=== PATIENT | female | born 1990 | race Caucasian/White ===

== ENCOUNTER → 2016-10-13 | Outpatient (CLI) | payer BC | LOC: MW.CHOBGYN 16:16 | PROVIDERS: ATTEND Advanced Practice Midwife | DX: Z34.90 Encounter for supervision of normal pregnancy, unspecified, unspecified trimester (principal) | CPT/HCPCS: 36415; 80305; 81003; 82105; 82677; 84702; 85025; 86336; 86592; 86762; 86803; 86850; 86900; 86901; 87086; 87340; 87389; 87491; 87591 ==

== ENCOUNTER → 2016-11-01 | Outpatient (CLI) | payer BC ==
--- NOTE | 2016-11-01 15:45 | US ---
Examination: Greater than 14 weeks transabdominal ultrasound with color Doppler and M-mode evaluatio n. HISTORY: Screening FINDINGS: LMP is 06/14/2016 EVALUATION: Anterior placenta with a breech lie and grade 1. Visually amniotic fluid is within normal limits. Three-vessel cord is seen. Ventricles are within normal limits. Nuchal fold thickness is not provided. Four chamber heart is noted. Heart rate is 140 beats per minute. BIOMETRY AND GESTATIONAL AGE: Biparietal diameter 4.6 cm. The abdominal circumference measures 14.8 cm. The femoral length is 3.3 cm with head circumference of 17.3 cm. Gestational age is 20 weeks and 1 days. The expected date of delivery is approximately 03/20/2017. Fetus weight is 334 grams. Other detail anatomy summarized into PACs sheet after the images. No anatomical anomalies. IMPRESSION: Single active IU with breech fetus. Anterior placenta with grade 1, no placenta previa. No anomalies are seen. Amniotic fluid appears within normal limits.
== END ==
LOC: MW.US 09:26
PROVIDERS: ATTEND Advanced Practice Midwife
DX: Z36 Encounter for antenatal screening of mother (principal); Z3A.20 20 weeks gestation of pregnancy
CPT/HCPCS: 76805; 76805-26

== ENCOUNTER 2017-03-19 06:18 | Inpatient (IN) | payer BC ==
[2017-03-19] MEDS ORDERED: Butorphanol 1 MG/ML SDV IVPUSH PRN (06:43)
[2017-03-19] MEDS ORDERED: Carboprost Tromethamine 250 MCG/1 ML Amp IM PRN (06:43)
[2017-03-19] MEDS ORDERED: Nalbuphine 10 MG/1 ML Vial IVPUSH PRN (06:43)
[2017-03-19] MEDS ORDERED: Ondansetron 4 MG/2 ML SDV IV PRN (06:43)
[2017-03-19] MEDS ORDERED: Sodium Chloride 0.9% 2.5 ML Syringe FLUSH PRN (06:43)
[2017-03-19] MEDS ORDERED: Lidocaine 1% 50 ML MDV INJECT PRN (06:43)
[2017-03-19] MEDS ORDERED: Sodium Chloride 0.9% 10 ML Syringe FLUSH PRN (06:43)
[2017-03-19] MEDS ORDERED: Misoprostol 200 MCG Tab PO PRN (06:43)
[2017-03-19] MEDS ORDERED: Methylergonovine 0.2 MG/1 ML Amp IM PRN (06:43)
[2017-03-19] MEDS ORDERED: Water For Irrigation,Sterile 1,000 ML Container IRR PRN (06:43)
[2017-03-19] MEDS ORDERED: Oxytocin/0.9 % Sodium Chloride 30 UNIT/500 ML BAG IV SCH (06:45)
[2017-03-19] MEDS ORDERED: Lactated Ringers 1,000 ML IV SCH (06:45)
--- NOTE | 2017-03-19 08:00 | PCM.LDHP ---
L&D History of Present Illness - General Date of Service: 03/19/17 Admit Problem/Dx: Patient Status Order with Admit Dx/Problem 03/19/17 06:43 Patient Status [ADT] Routine Admission Diagnosis/Problem Admission Diagnosis/Problem 03/19/17 08:00 A: 26yo EDC 03/21/2017 39 5/7wks B+, R-equivocal, GBS neg. Uneventful . Source of Information: Patient History Limitations: Reports: No Limitations - History of Present Illness Timing/Duration: Reports: minutes: (2-3) Location, : Reports: Abdomen Quality: Reports: Sharp Severity: Severe Improves with: Reports: None Worsens with: Reports: None Associated Symptoms: Reports: N - Related Data Allergies/Adverse Reactions: Allergies Allergy/AdvReac Type Severity Reaction Status Date / Time No Known Allergies Allergy Verified 03/18/17 22:37 H&P Review of Systems - Review of Systems: Review Of Systems: See Below General: Reports: No Symptoms HEENT: Reports: No Symptoms Pulmonary: Reports: No Symptoms Cardiovascular: Reports: No Symptoms Gastrointestinal: Reports: No Symptoms Genitourinary: Reports: No Symptoms Musculoskeletal: Reports: No Symptoms Skin: Reports: No Symptoms Psychiatric: Reports: No Symptoms Neurological: Reports: No Symptoms Hematologic/Lymphatic: Reports: No Symptoms Immunologic: Reports: No Symptoms L&D Exam - Exam Exam: See Below - Vital Signs Weight: 81.647 kg - OB Specific Fundal Height In cm: 40 Contraction Duration (sec): 50-70 sec Contraction Frequency (min): 2-4min Contraction Intensity: Strong Movement: Active Heart Tones: Present Heart Tones per Min: 150 Heart Rate (FHR) Variability: Moderate (6-25 bmp) Presentation: Vertex - Exam General: Alert, Oriented, Cooperative, Mild Distress HEENT: Hearing Intact Lungs: Normal Respiratory Effort GI/Abdominal Exam: No Organomegaly (gravid) Rectal Exam: Deferred Genitourinary: Normal bimanual exam, Cervical dilitation (7-8cm/c/-1), Cervical fluid (AROM clear) Back Exam: Full Range of Motion Extremities: Normal Range of Motion, Non-Tender, No Pedal Edema, Normal Capillary Refill Skin: Warm, Dry, Intact Neurological: Reflexes Equal Bilateral Psychiatric: Alert, Normal Affect, Normal Mood - Patient Data Lab Results Last 24 hrs: Laboratory Results - last 24 hr 03/19/17 03/19/17 Range/Units 06:54 06:54 WBC 16.12 H (4.0-11.0) K/uL RBC 4.86 (4.30-5.90) M/uL Hgb 13.1 (12.0-16.0) g/dL Hct 39.5 (36.0-46.0) % MCV 81.3 (80.0-98.0) fL MCH 27.0 (27.0-32.0) pg MCHC 33.2 (31.0-37.0) g/dL RDW Std Deviation 43.8 (28.0-62.0) fl RDW Coeff of Prateek 15 (11.0-15.0) % Plt Count 264 (150-400) K/uL MPV 12.10 H (7.40-12.00) fL Nucleated RBC % 0.0 /100WBC Nucleated RBCs # 0 K/uL Blood Type B POSITIVE Antibody Screen NEGATIVE Result Diagrams: 03/19/17 06:54 - Problem List (1) Supervision of normal IUP (intrauterine ) in primigravida SNOMED Code(s): 01565140, 357292311, 401919843, 687705793 ICD Code: Z34.00 - ENCNTR FOR SUPRVSN OF NORMAL FIRST , UNSP TRIMESTER Status: Acute Current Visit: Yes Qualifiers: Trimester: third trimester Qualified Code(s): Z34.03 - Encounter for supervision of normal first , third trimester Problem List Initiated/Reviewed/Updated: Yes Orders Last 24hrs: Active Orders 24 hr Category Date Time Status Patient Status [ADT] Routine ADT 03/19/17 06:43 Active Heart Tones [RC] CONTINUOUS Care 03/19/17 06:43 Active Non Stress Test [RC] PER UNIT ROUTINE Care 03/19/17 06:43 Active May Shower [RC] ASDIRECTED Care 03/19/17 06:43 Active Notify Provider [RC] PRN Care 03/19/17 06:43 Active Up ad Herlinda [RC] ASDIRECTED Care 03/19/17 06:43 Active Vaginal Exam [RC] PRN Care 03/19/17 06:43 Active Vital Signs [RC] PER UNIT ROUTINE Care 03/19/17 06:43 Active Butorphanol [Stadol] Med 03/19/17 06:43 Active 1 mg IVPUSH Q1H PRN Carboprost Tromethamine [Hemabate DS] Med 03/19/17 06:43 Active 250 mcg IM ASDIRECTED PRN Lactated Ringers [Ringers, Lactated] 1,000 ml Med 03/19/17 06:45 Active IV ASDIRECTED Lidocaine 1% [Xylocaine 1%] Med 03/19/17 06:43 Active 50 ml INJECT .ONCE PRN Methylergonovine [Methergine] Med 03/19/17 06:43 Active 0.2 mg IM ASDIRECTED PRN Misoprostol [Cytotec] Med 03/19/17 06:43 Active 200 mcg PO .ONCE PRN Nalbuphine [Nubain] Med 03/19/17 06:43 Active 10 mg IVPUSH Q1H PRN Ondansetron [Zofran] Med 03/19/17 06:43 Active 8 mg IV Q4H PRN Oxytocin/0.9 % Sodium Chloride [Oxytocin 30 Unit/500 ML Med 03/19/17 06:45 Active -NS] 30 unit in 500 ml IV TITRATE Sodium Chloride 0.9% [Saline Flush] Med 03/19/17 06:43 Active 10 ml FLUSH ASDIRECTED PRN Sodium Chloride 0.9% [Saline Flush] Med 03/19/17 06:43 Active 2.5 ml FLUSH ASDIRECTED PRN Water For Irrigation,Sterile [Sterile Water for Med 03/19/17 06:43 Active Irrigation] 1,000 ml IRR ASDIRECTED PRN Scalp Electrode [WOMSER] Per Unit Routine Oth 03/19/17 06:43 Ordered Peripheral IV Insertion Adult [OM.PC] Routine Oth 03/19/17 06:43 Ordered Resuscitation Status Routine Resus Stat 03/19/17 06:43 Ordered Medication Orders Butorphanol Tartrate (Stadol) 1 mg IVPUSH Q1H PRN PRN Reason: Pain Carboprost Tromethamine (Hemabate Ds) 250 mcg IM ASDIRECTED PRN PRN Reason: Post Hemorrhage Lactated Ringer's (Ringers, Lactated) 1,000 mls @ 150 mls/hr IV ASDIRECTED LATA Last Admin: 03/19/17 06:55 Dose: 150 mls/hr Oxytocin/Sodium Chloride (Oxytocin 30 Unit/500 Ml-Ns) 30 unit in 500 mls @ 999 mls/hr IV TITRATE LATA Lidocaine HCl (Xylocaine 1%) 50 ml INJECT .ONCE PRN PRN Reason: Laceration repair Methylergonovine Maleate (Methergine) 0.2 mg IM ASDIRECTED PRN PRN Reason: Post Hemorrhage Misoprostol (Cytotec) 200 mcg PO .ONCE PRN PRN Reason: Post Hemorrhage Nalbuphine HCl (Nubain) 10 mg IVPUSH Q1H PRN PRN Reason: Pain (severe 7-10) Ondansetron HCl (Zofran) 8 mg IV Q4H PRN PRN Reason: Nausea/Vomiting Last Admin: 03/19/17 07:11 Dose: 8 mg Sodium Chloride (Saline Flush) 10 ml FLUSH ASDIRECTED PRN PRN Reason: Keep Vein Open Sodium Chloride (Saline Flush) 2.5 ml FLUSH ASDIRECTED PRN PRN Reason: Keep Vein Open Sterile Water (Sterile Water For Irrigation) 1,000 ml IRR ASDIRECTED PRN PRN Reason: delivery Assessment/Plan Comment:: Labor A: 26yo EDC 03/21/2017 39 5/7wks B+, R-equivocal, GBS neg. Uneventful . Desires to go without pain medication P: Admit to L&D, anticipate JOSE, Dr Smalls updated
[2017-03-19] MEDS ORDERED: Docusate Sodium 100 MG Cap PO PRN (09:42)
[2017-03-19] MEDS ORDERED: Lanolin 100% Cream 7 GM Tube TOP PRN (09:42)
[2017-03-19] MEDS ORDERED: Ibuprofen 400 MG Tab PO PRN (09:42)
[2017-03-19] MEDS ORDERED: Benzocaine/Menthol 20%-0.5% Spray 78 GM Cannister TOP PRN (09:42)
[2017-03-19] MEDS ORDERED: oxyCODONE 5 MG Tab PO PRN (09:42)
[2017-03-19] MEDS ORDERED: Acetaminophen 500 MG Tab PO PRN ×2 (09:42)
[2017-03-19] MEDS ORDERED: Witch Hazel Medicated Pads 40/Jar TOP PRN (09:42)
[2017-03-19] MEDS ORDERED: Bisacodyl 10 MG Supp RECTAL PRN (09:42)
--- NOTE | 2017-03-19 09:50 | PCM.DEL ---
L & D Note - General Info Date of Service: 03/19/17 Mother's Due Date: 03/21/17 - Delivery Note Labor: Spontaneous Delivery Outcome: Livebirth Infant Delivery Method: Spontaneous Vaginal Delivery-Single Presentation: Vertex Nuchal Cord: None Anesthesia Type: None Amniotic Fluid Description: Clear Episiotomy Type: None Laceration: None Placenta: Intact, Spontaneous Cord: 3 Vessels Estimated Blood Loss: 150 Resuscitation Needed: No Second Stage Interventions: Reports: Pushing Effectively Delivery Comments (Free Text/Narrative):: of viable female over intact perineum without pain medication. Head delivered with great pushing and then shoulders and body followed easily. Infant to mothers abd with RN at . Delayed cord clamping. Pitocin to IVF. Cord clamped and cut by FOB. Cord blood collected. Placenta delivered grossly intact, 3VC. Inspection noted small side wall vaginal lac, no repair needed. APGARS 8/9, EBL 150cc. Mother and left in stable condition for recovery. - General Info Date of Service: 03/19/17 Admission Dx/Problem (Free Text): Patient Status Order with Admit Dx/Problem 03/19/17 06:43 Patient Status [ADT] Routine Admission Diagnosis/Problem Admission Diagnosis/Problem 03/19/17 08:00 A: 26yo EDC 03/21/2017 39 5/7wks B+, R-equivocal, GBS neg. Uneventful . Functional Status: Reports: Pain Controlled - Review of Systems General: Reports: No Symptoms HEENT: Reports: No Symptoms Pulmonary: Reports: No Symptoms Cardiovascular: Reports: No Symptoms Gastrointestinal: Reports: No Symptoms Genitourinary: Reports: No Symptoms Musculoskeletal: Reports: No Symptoms Skin: Reports: No Symptoms Neurological: Reports: No Symptoms Psychiatric: Reports: No Symptoms - Patient Data Weight - Most Recent: 81.647 kg Lab Results Last 24 Hours: Laboratory Results - last 24 hr 03/19/17 03/19/17 Range/Units 06:54 06:54 WBC 16.12 H (4.0-11.0) K/uL RBC 4.86 (4.30-5.90) M/uL Hgb 13.1 (12.0-16.0) g/dL Hct 39.5 (36.0-46.0) % MCV 81.3 (80.0-98.0) fL MCH 27.0 (27.0-32.0) pg MCHC 33.2 (31.0-37.0) g/dL RDW Std Deviation 43.8 (28.0-62.0) fl RDW Coeff of Prateek 15 (11.0-15.0) % Plt Count 264 (150-400) K/uL MPV 12.10 H (7.40-12.00) fL Nucleated RBC % 0.0 /100WBC Nucleated RBCs # 0 K/uL Blood Type B POSITIVE Antibody Screen NEGATIVE Med Orders - Current: Current Medications Acetaminophen (Tylenol Extra Strength) 500 mg PO Q4H PRN PRN Reason: Pain Acetaminophen (Tylenol Extra Strength) 1,000 mg PO Q4H PRN PRN Reason: Pain Benzocaine/Menthol (Dermoplast Pain Relief 20%-0.5% [place]) 78 gm TOP ASDIRECTED PRN PRN Reason: Perineal Comfort Measure Bisacodyl (Dulcolax) 10 mg RECTAL .ONCE PRN PRN Reason: Constipation Docusate Sodium (Colace) 100 mg PO BID PRN PRN Reason: Constipation Emollient Ointment (Lansinoh Hpa) 0 gm TOP ASDIRECTED PRN PRN Reason: Sore Nipples Ibuprofen (Motrin) 400 mg PO Q4H PRN PRN Reason: Pain Ibuprofen (Motrin) 800 mg PO Q6H PRN PRN Reason: Pain Oxycodone HCl (Oxycodone) 5 mg PO Q2H PRN PRN Reason: Pain Witch Pratima (Tucks) 1 pad TOP ASDIRECTED PRN PRN Reason: comfort care Discontinued Medications Butorphanol Tartrate (Stadol) 1 mg IVPUSH Q1H PRN PRN Reason: Pain Carboprost Tromethamine (Hemabate Ds) 250 mcg IM ASDIRECTED PRN PRN Reason: Post Hemorrhage Lactated Ringer's (Ringers, Lactated) 1,000 mls @ 150 mls/hr IV ASDIRECTED [facility] Last Admin: 03/19/17 06:55 Dose: 150 mls/hr Oxytocin/Sodium Chloride (Oxytocin 30 Unit/500 Ml-Ns) 30 unit in 500 mls @ 999 mls/hr IV TITRATE [facility] Last Admin: 03/19/17 09:31 Dose: 999 mls/hr Lidocaine HCl (Xylocaine 1%) 50 ml INJECT .ONCE PRN PRN Reason: Laceration repair Methylergonovine Maleate (Methergine) 0.2 mg IM ASDIRECTED PRN PRN Reason: Post Hemorrhage Misoprostol (Cytotec) 200 mcg PO .ONCE PRN PRN Reason: Post Hemorrhage Nalbuphine HCl (Nubain) 10 mg IVPUSH Q1H PRN PRN Reason: Pain (severe 7-10) Ondansetron HCl (Zofran) 8 mg IV Q4H PRN PRN Reason: Nausea/Vomiting Last Admin: 03/19/17 07:11 Dose: 8 mg Sodium Chloride (Saline Flush) 10 ml FLUSH ASDIRECTED PRN PRN Reason: Keep Vein Open Sodium Chloride (Saline Flush) 2.5 ml FLUSH ASDIRECTED PRN PRN Reason: Keep Vein Open Sterile Water (Sterile Water For Irrigation) 1,000 ml IRR ASDIRECTED PRN PRN Reason: delivery - Exam General: Alert, Oriented, Cooperative, No Acute Distress Lungs: Normal Respiratory Effort GI/Abdominal Exam: Soft, Non-Tender, No Distention, No Mass (Female) Exam: Normal External Exam, Normal Bimanual Exam, Vaginal Bleeding Back Exam: Full Range of Motion Extremities: Normal Range of Motion, Non-Tender, No Pedal Edema, Normal Capillary Refill Skin: Warm, Dry, Intact Wound/Incisions: Healing Well Neurological: No New Focal Deficit, Normal Speech, Normal Tone Psy/Mental Status: Alert, Normal Affect, Normal Mood - Problem List & Annotations (1) Supervision of normal IUP (intrauterine ) in primigravida SNOMED Code(s): 33270092, 992854645, 852065115, 617173959 Code(s): Z34.00 - ENCNTR FOR SUPRVSN OF NORMAL FIRST , UNSP TRIMESTER Status: Acute Current Visit: Yes Qualifiers: Trimester: third trimester Qualified Code(s): Z34.03 - Encounter for supervision of normal first , third trimester (2) (normal spontaneous vaginal delivery) SNOMED Code(s): 70211066 Code(s): O80 - ENCOUNTER FOR FULL-TERM UNCOMPLICATED DELIVERY Status: Acute Priority: High Current Visit: Yes - Problem List Review Problem List Initiated/Reviewed/Updated: Yes - My Orders Last 24 Hours: My Active Orders 03/19/17 06:43 Heart Tones [RC] CONTINUOUS Non Stress Test [RC] PER UNIT ROUTINE May Shower [RC] ASDIRECTED Notify Provider [RC] PRN Up ad Herlinda [RC] ASDIRECTED Vaginal Exam [RC] PRN Vital Signs [RC] PER UNIT ROUTINE 03/19/17 09:42 Patient Status [ADT] Routine May Shower [RC] ASDIRECTED Up ad Herlinda [RC] ASDIRECTED Vital Signs [RC] PER UNIT ROUTINE Acetaminophen [Tylenol Extra Strength] 1,000 mg PO Q4H PRN Acetaminophen [Tylenol Extra Strength] 500 mg PO Q4H PRN Benzocaine/Menthol [Dermoplast Pain Relief 20%-0.5% [place]] 78 gm TOP ASDIRECTED PRN Bisacodyl [Dulcolax] 10 mg RECTAL .ONCE PRN Docusate Sodium [Colace] 100 mg PO BID PRN Ibuprofen [Motrin] 400 mg PO Q4H PRN Ibuprofen [Motrin] 800 mg PO Q6H PRN Lanolin [Lansinoh HPA] See Dose Instructions TOP ASDIRECTED PRN Witch Pratima [Tucks] 1 pad TOP ASDIRECTED PRN oxyCODONE 5 mg PO Q2H PRN Assess Lochia [WOMSER] Per Unit Routine Assess Uterine Involution [WOMSER] Per Unit Routine Peripheral IV Discontinue [OM.PC] Routine Resuscitation Status Routine 03/19/17 Lunch Regular Diet [DIET] - Assessment Assessment:: Delivery A: over intact perineum healthy pink baby girl. APGARS 8/9, Wt pending bonding. Intact perineum, EBL 150cc, Mother and infant stable and bonding well. - Plan Plan:: Labor A: 26yo EDC 03/21/2017 39 5/7wks B+, R-equivocal, GBS neg. Uneventful . Desires to go without pain medication P: Admit to L&D, anticipate , Dr Smalls updated Delivery P: Routine pp plan of care.
[2017-03-19] MEDS: Ibuprofen 800 MG Tab PO PRN ×2 (10:07→19:00)
[2017-03-19] MEDS ORDERED: Lactated Ringers 1,000 ML IV ONE (15:40)
[2017-03-20] MEDS: Ibuprofen 800 MG Tab PO PRN ×2 (02:12→10:08)
[2017-03-20] MEDS ORDERED: FLU Vacc QS 2017-18 (6mos UP)/PF 60 MCG/0.5 ML Syringe IM ONE ×2 (09:00→10:00)
[2017-03-20 09:03] VITALS: BP 96/54
--- NOTE | 2017-03-20 09:24 | PCM.PNPP ---
- General Info Date of Service: 03/20/17 Functional Status: Reports: Pain Controlled - Review of Systems General: Reports: No Symptoms HEENT: Reports: No Symptoms Pulmonary: Reports: No Symptoms Cardiovascular: Reports: No Symptoms Gastrointestinal: Reports: No Symptoms Genitourinary: Reports: No Symptoms Musculoskeletal: Reports: No Symptoms Skin: Reports: No Symptoms Neurological: Reports: No Symptoms Psychiatric: Reports: No Symptoms - General Info Date of Service: 03/20/17 - Patient Data Vital Signs - Most Recent: Last Vital Signs Temp 36.9 C 03/20/17 08:00 Pulse 64 03/20/17 08:00 Resp 16 03/20/17 08:00 BP 96/54 L 03/20/17 08:00 Pulse Ox 97 03/20/17 08:00 Weight - Most Recent: 81.193 kg Med Orders - Current: Current Medications Acetaminophen (Tylenol Extra Strength) 500 mg PO Q4H PRN PRN Reason: Pain Last Admin: 03/19/17 15:30 Dose: 500 mg Acetaminophen (Tylenol Extra Strength) 1,000 mg PO Q4H PRN PRN Reason: Pain Benzocaine/Menthol (Dermoplast Pain Relief 20%-0.5% [place]) 78 gm TOP ASDIRECTED PRN PRN Reason: Perineal Comfort Measure Last Admin: 03/19/17 10:06 Dose: 1 canister Bisacodyl (Dulcolax) 10 mg RECTAL .ONCE PRN PRN Reason: Constipation Docusate Sodium (Colace) 100 mg PO BID PRN PRN Reason: Constipation Emollient Ointment (Lansinoh Hpa) 0 gm TOP ASDIRECTED PRN PRN Reason: Sore Nipples Last Admin: 03/19/17 10:07 Dose: 1 applicful Ibuprofen (Motrin) 400 mg PO Q4H PRN PRN Reason: Pain Ibuprofen (Motrin) 800 mg PO Q6H PRN PRN Reason: Pain Last Admin: 03/20/17 02:12 Dose: 800 mg Measles/Mumps/Rubella Vaccine Live (M-M-R Ii Vaccine) 0.5 ml SUBCUT .ONCE ONE Stop: 03/20/17 09:51 Oxycodone HCl (Oxycodone) 5 mg PO Q2H PRN PRN Reason: Pain Witch Pratima (Tucks) 1 pad TOP ASDIRECTED PRN PRN Reason: comfort care Last Admin: 03/19/17 10:06 Dose: 1 applicful Discontinued Medications Butorphanol Tartrate (Stadol) 1 mg IVPUSH Q1H PRN PRN Reason: Pain Carboprost Tromethamine (Hemabate Ds) 250 mcg IM ASDIRECTED PRN PRN Reason: Post Hemorrhage Lactated Ringer's (Ringers, Lactated) 1,000 mls @ 150 mls/hr IV ASDIRECTED L[facility] Last Admin: 03/19/17 06:55 Dose: 150 mls/hr Oxytocin/Sodium Chloride (Oxytocin 30 Unit/500 Ml-Ns) 30 unit in 500 mls @ 999 mls/hr IV TITRATE LATA Last Admin: 03/19/17 09:31 Dose: 999 mls/hr Lactated Ringer's (Ringers, Lactated) 1,000 mls @ 999 mls/hr IV .BOLUS ONE Stop: 03/19/17 16:40 Last Admin: 03/19/17 15:44 Dose: 999 mls/hr Lidocaine HCl (Xylocaine 1%) 50 ml INJECT .ONCE PRN PRN Reason: Laceration repair Methylergonovine Maleate (Methergine) 0.2 mg IM ASDIRECTED PRN PRN Reason: Post Hemorrhage Misoprostol (Cytotec) 200 mcg PO .ONCE PRN PRN Reason: Post Hemorrhage Nalbuphine HCl (Nubain) 10 mg IVPUSH Q1H PRN PRN Reason: Pain (severe 7-10) Ondansetron HCl (Zofran) 8 mg IV Q4H PRN PRN Reason: Nausea/Vomiting Last Admin: 03/19/17 07:11 Dose: 8 mg Sodium Chloride (Saline Flush) 10 ml FLUSH ASDIRECTED PRN PRN Reason: Keep Vein Open Sodium Chloride (Saline Flush) 2.5 ml FLUSH ASDIRECTED PRN PRN Reason: Keep Vein Open Sterile Water (Sterile Water For Irrigation) 1,000 ml IRR ASDIRECTED PRN PRN Reason: delivery - Interaction Infant Disposition, : in Room with Family Interaction: Holding Infant Feeding: Attempted ; Nursed Fair/Poor - Recovery Exam Fundal Tone: Firm Fundal Level: 2 Fingerbreadths Below Umbilicus Fundal Placement: Midline Lochia Amount: Scant Lochia Color: Rubra/Red Perineum Description: Intact, Minimal Bruising/Swelling Episiotomy/Laceration: Approximated Bladder Status: Voiding Urinary Elimination: Voided - Exam General: Alert, Oriented HEENT: Pupils Equal Neck: Supple Lungs: Clear to Auscultation, Normal Respiratory Effort Cardiovascular: Regular Rate, Regular Rhythm GI/Abdominal Exam: Normal Bowel Sounds, Soft, Non-Tender, No Organomegaly, No Distention, No Abnormal Bruit, No Mass, Pelvis Stable Extremities: Normal Inspection, Normal Range of Motion, Non-Tender, No Pedal Edema, Normal Capillary Refill Skin: Warm, Dry, Intact Wound/Incisions: Healing Well Neurological: No New Focal Deficit Psy/Mental Status: Alert, Normal Affect, Normal Mood - Problem List Review Problem List Initiated/Reviewed/Updated: Yes - My Orders Last 24 Hours: My Active Orders 03/20/17 10:00 FLU Vacc [id number](6MOS UP)/PF [Flulaval Quad [id number]] 60 mcg IM ONETIME ONE - Assessment Assessment:: Delivery A: over intact perineum healthy pink baby girl. APGARS 8/9, Wt pending bonding. Intact perineum, EBL 150cc, Mother and stable and bonding well. - Plan Plan:: Labor A: 26yo EDC 03/21/2017 39 5/7wks B+, R-equivocal, GBS neg. Uneventful . Desires to go without pain medication P: Admit to L&D, anticipate , Dr Smalls updated Delivery P: Routine pp plan of care.
[2017-03-20] MEDS ORDERED: Measles, Mumps & Rubella Vaccine 0.5 ML SDV SUBCUT ONE (09:50)
[2017-03-20] MEDS ORDERED: FLU Vacc QS 2017-18 (36mos UP)/PF 60 MCG/0.5 ML Syringe IM ONE (10:00)
== END 2017-03-20 11:45 | disposition home or self-care (01) | DRG 560 ==
LOC: MW.OBCHECK 06:18 → MW.OB 06:24 → MW.OBCHECK 06:43 → MW.OB 06:43 → OBSVTOIN 09:29
PROVIDERS: ADMIT Obstetrics & Gynecology; ATTEND Obstetrics & Gynecology
PROC: 10E0XZZ Delivery of Products of Conception, External Approach (ICD-10-PCS; principal; 2017-03-19)
DX: O80 Encounter for full-term uncomplicated delivery (principal); Z3A.39 39 weeks gestation of pregnancy; Z37.0 Single live birth
CPT/HCPCS: 36415; 59025; 59409; 85027; 86850; 86900; 86901; 90471; 90686; 90707; A9270-GY; J2405; J2590; J7120

== ENCOUNTER 2020-03-29 23:10 | Inpatient (IN) | payer BC, OTHER ==
[2020-03-30] MEDS ORDERED: Tranexamic Acid 1,000 MG in Sodium Chloride 0.9% 100 ML IV PRN ×2 (00:36→03:32)
[2020-03-30] MEDS ORDERED: Methylergonovine 0.2 MG/1 ML Amp IM PRN ×2 (00:36→03:32)
[2020-03-30] MEDS ORDERED: Water For Irrigation,Sterile 1,000 ML Container IRR PRN (00:36)
[2020-03-30] MEDS ORDERED: Sodium Chloride 0.9% 2.5 ML Syringe FLUSH PRN (00:36)
[2020-03-30] MEDS ORDERED: Ondansetron 4 MG/2 ML SDV IVPUSH PRN (00:36)
[2020-03-30] MEDS ORDERED: Sodium Chloride 0.9% 10 ML Syringe FLUSH PRN (00:36)
[2020-03-30] MEDS ORDERED: Sodium Chloride 0.9% 10 ML SDV IV PRN (00:36)
[2020-03-30] MEDS ORDERED: Carboprost Tromethamine 250 MCG/1 ML Amp IM PRN (00:36)
[2020-03-30] MEDS ORDERED: Misoprostol 200 MCG Tab PO PRN (00:36)
[2020-03-30] MEDS ORDERED: Lidocaine 1% 50 ML MDV INJECT PRN (00:36)
[2020-03-30] MEDS ORDERED: Nalbuphine 10 MG/1 ML Vial IVPUSH PRN (00:36)
[2020-03-30] MEDS ORDERED: Butorphanol 1 MG/ML SDV IVPUSH PRN (00:36)
[2020-03-30] MEDS ORDERED: Oxytocin/0.9 % Sodium Chloride 30 UNIT/500 ML BAG IV SCH (00:45)
[2020-03-30] MEDS ORDERED: Lactated Ringers 1,000 ML IV SCH (00:45)
[2020-03-30] MEDS ORDERED: Witch Hazel Medicated Pads 40/Jar TOP PRN (03:32)
[2020-03-30] MEDS ORDERED: Lanolin 100% Cream 7 GM Tube TOP PRN (03:32)
[2020-03-30] MEDS ORDERED: Acetaminophen 500 MG Tab PO PRN (03:32)
[2020-03-30] MEDS ORDERED: Ibuprofen 400 MG Tab PO PRN (03:32)
[2020-03-30] MEDS ORDERED: Bisacodyl 10 MG Supp RECTAL PRN (03:32)
[2020-03-30] MEDS ORDERED: Docusate Sodium 100 MG Cap PO PRN (03:32)
[2020-03-30] MEDS ORDERED: Benzocaine/Menthol 20%-0.5% Spray 78 GM Cannister TOP PRN (03:32)
--- NOTE | 2020-03-30 03:32 | PCM.DEL ---
L & D Note - General Info Date of Service: 03/30/20 Mother's Due Date: 03/27/20 - Delivery Note Labor: Spontaneous Delivery Outcome: Livebirth Infant Delivery Method: Spontaneous Vaginal Delivery-Single Presentation: Left Occiput Anterior (CANDICE) Nuchal Cord: None Prep: Other Anesthesia Type: Pudendal Laceration: None Placenta: Intact, Spontaneous Cord: 3 Vessels Estimated Blood Loss: 200 Resuscitation Needed: Yes [place]: Suctioned Score 1 min: 8 Score 5 min: 9 - General Info Date of Service: 03/30/20 - Patient Data Lab Results Last 24 Hours: Laboratory Results - last 24 hr 03/29/20 03/29/20 03/29/20 Range/Units 23:50 23:50 23:50 WBC 12.92 H (4.0-11.0) K/uL RBC 4.17 L (4.30-5.90) M/uL Hgb 11.8 L (12.0-16.0) g/dL Hct 35.8 L (36.0-46.0) % MCV 85.9 (80.0-98.0) fL MCH 28.3 (27.0-32.0) pg MCHC 33.0 (31.0-37.0) g/dL RDW Std Deviation 42.7 (28.0-62.0) fl RDW Coeff of Prateek 14 (11.0-15.0) % Plt Count 253 (150-400) K/uL MPV 11.40 (7.40-12.00) fL Nucleated RBC % 0.0 /100WBC Nucleated RBCs # 0 K/uL SARS-CoV-2 RNA (JAILENE) NEGATIVE (NEGATIVE) Blood Type B POSITIVE Antibody Screen NEGATIVE Med Orders - Current: Current Medications Butorphanol Tartrate (Stadol) 1 mg IVPUSH Q1H PRN PRN Reason: Pain Carboprost Tromethamine (Hemabate Ds) 250 mcg IM ASDIRECTED PRN PRN Reason: Post Hemorrhage Oxytocin/Sodium Chloride (Oxytocin 30 Unit/500 Ml-Ns) 30 unit in 500 mls @ 999 mls/hr IV TITRATE LATA Tranexamic Acid 1,000 mg/ (Sodium Chloride) 110 mls @ 660 mls/hr IV ONETIME PRN PRN Reason: Bleeding Lactated Ringer's (Ringers, Lactated) 1,000 mls @ 150 mls/hr IV ASDIRECTED LATA Lidocaine HCl (Xylocaine 1%) 50 ml INJECT ONETIME PRN PRN Reason: Laceration repair Methylergonovine Maleate (Methergine) 0.2 mg IM ASDIRECTED PRN PRN Reason: Post Hemorrhage Misoprostol (Cytotec) 200 mcg PO ONETIME PRN PRN Reason: Post Hemorrhage Nalbuphine HCl (Nubain) 10 mg IVPUSH Q1H PRN PRN Reason: Pain (severe 7-10) Ondansetron HCl (Zofran) 4 mg IVPUSH Q6H PRN PRN Reason: Nausea/Vomiting Sodium Chloride (Saline Flush) 10 ml FLUSH ASDIRECTED PRN PRN Reason: Keep Vein Open Sodium Chloride (Saline Flush) 2.5 ml FLUSH ASDIRECTED PRN PRN Reason: Keep Vein Open Sodium Chloride (Normal Saline) 10 ml IV ASDIRECTED PRN PRN Reason: IV Use Sterile Water (Sterile Water For Irrigation) 1,000 ml IRR ASDIRECTED PRN PRN Reason: delivery - Problem List & Annotations (1) (normal spontaneous vaginal delivery) SNOMED Code(s): 86951658, 434040503 Code(s): O80 - ENCOUNTER FOR FULL-TERM UNCOMPLICATED DELIVERY Status: Acute Priority: High Current Visit: No - Problem List Review Problem List Initiated/Reviewed/Updated: Yes - My Orders Last 24 Hours: My Active Orders 03/29/20 23:50 RPR (SYPHILIS SERO) W/ RFLX [REF] Routine 03/30/20 00:36 Patient Status [ADT] Routine Heart Tones [RC] CONTINUOUS Non Stress Test [RC] PER UNIT ROUTINE May Shower [RC] ASDIRECTED Notify Provider [RC] PRN Up ad Herlinda [RC] ASDIRECTED Vaginal Exam [RC] PRN Vital Signs [RC] PER UNIT ROUTINE Butorphanol [Stadol] 1 mg IVPUSH Q1H PRN Carboprost Tromethamine [Hemabate DS] 250 mcg IM ASDIRECTED PRN Lidocaine 1% [Xylocaine 1%] 50 ml INJECT ONETIME PRN Methylergonovine [Methergine] 0.2 mg IM ASDIRECTED PRN Nalbuphine [Nubain] 10 mg IVPUSH Q1H PRN Ondansetron [Zofran] 4 mg IVPUSH Q6H PRN Sodium Chloride 0.9% [Normal Saline] 10 ml IV ASDIRECTED PRN Sodium Chloride 0.9% [Saline Flush] 10 ml FLUSH ASDIRECTED PRN Sodium Chloride 0.9% [Saline Flush] 2.5 ml FLUSH ASDIRECTED PRN Tranexamic Acid [Cyklokapron] 1,000 mg Sodium Chloride 0.9% [Normal Saline] 100 ml IV ONETIME Water For Irrigation,Sterile [Sterile Water for Irrigation] 1,000 ml IRR ASDIRECTED PRN miSOPROStoL [Cytotec] 200 mcg PO ONETIME PRN Scalp Electrode [WOMSER] Per Unit Routine Peripheral IV Insertion Adult [OM.PC] Routine Resuscitation Status Routine 03/30/20 00:45 Lactated Ringers [Ringers, Lactated] 1,000 ml IV ASDIRECTED Oxytocin/0.9 % Sodium Chloride [Oxytocin 30 Unit/500 ML-NS] 30 unit in 500 ml IV TITRATE 03/30/20 Breakfast Regular Diet [DIET]
--- NOTE | 2020-03-30 04:59 | OR ---
SURGEON: Essence Jackman M.D. DATE OF PROCEDURE: 03/30/2020 PREOPERATIVE DIAGNOSES: 40-3/7 week intrauterine , active spontaneous labor. POSTOPERATIVE DIAGNOSES: 40-3/7 week intrauterine , active spontaneous labor. PROCEDURE: Term spontaneous vaginal delivery. PRIMARY SURGEON: Essence Jackman M.D. CITIZEN PARTICIPATION SPECIALIST: CASIMIRO Sanders ANESTHESIA: Pudendal. ESTIMATED BLOOD LOSS: Less than 300 mL. FINDINGS: Liveborn female. scores 8 and 9, weighing 4000 g. Placenta spontaneous, Schultze intact with 3 vessels. Perineum intact. COMPLICATIONS: None known. DISPOSITION: Mother and baby are in LDR in good condition. BRIEF HISTORY: This is a 29-year-old female, G3, P1-0-1-1. She presents at 40-3/7 weeks' gestation in active spontaneous labor. She is known to be group B strep negative. She presented at 4 cm dilatation. She was admitted to Labor and Delivery. She progressed to 6 and then rapidly to 8 cm. At that point, she had considered an epidural. However, due to her rapid progress, decision was made to proceed without epidural. Membranes were ruptured when she was 9 cm dilated and she progressed to complete. DESCRIPTION OF PROCEDURE: With the patient in dorsal lithotomy position, a pudendal block was performed utilizing 10 mL of 1% lidocaine placed 2 cm medial and inferior to the spinous process on the right and the left. With this, there was loss of the anal reflex. The patient had some difficulty with having the urge to push. She pushed in multiple different positions over approximately 1 hour time period to a 5+ station at which time the head was delivered spontaneously and atraumatically over the perineum with support with subsequent delivery of the infant's shoulders and body without any difficulty. The was bulb suctioned by nose and mouth, and after 2 minutes, the cord was doubly clamped and cut. The was handed to the mother in the presence of the nurse attending delivery. The infant was a liveborn female, scores 8 and 9, weighing 4000 g. Cord blood was collected for cord ABGs as well as routine cord blood sampling. Pitocin was initiated after delivery of the to assist with delivery of the placenta, which was delivered spontaneously, Schultze intact, with 3 vessels. Upon inspection of pelvis and perineum, there were no periurethral, vaginal sidewall, cervical, or rectal lacerations. EBL was less than 300 mL. There were no known complications. Mother and baby remained in LDR in good condition. CHITRA GILMAN /[id number] MTDD
[2020-03-30] MEDS: Acetaminophen 500 MG Tab PO PRN ×3 (09:19→20:50)
[2020-03-30] MEDS: Ibuprofen 800 MG Tab PO PRN ×3 (09:39→23:29)
[2020-03-31] MEDS: Acetaminophen 500 MG Tab PO PRN ×2 (06:21→11:36)
[2020-03-31] MEDS: Ibuprofen 800 MG Tab PO PRN ×2 (06:21→12:57)
--- NOTE | 2020-03-31 09:58 | PCM.PNPP ---
- General Info Date of Service: 03/31/20 Admission Dx/Problem (Free Text): Labor Subjective Update: Patient is eating well. She is and is going to begin supplementing with formula until her milk comes in. Her left nipple has began to become sore from baby attempting to latch. She has no concerns at this time. She has been able to void without difficulty or burning. Functional Status: Reports: Pain Controlled - Review of Systems General: Reports: No Symptoms Pulmonary: Reports: No Symptoms Cardiovascular: Reports: No Symptoms Gastrointestinal: Reports: No Symptoms Genitourinary: Reports: No Symptoms - General Info Date of Service: 03/31/20 - Patient Data Vital Signs - Most Recent: Last Vital Signs Temp 36.6 C 03/31/20 04:36 Pulse 86 03/31/20 04:36 Resp 14 03/31/20 04:36 BP 114/69 03/31/20 04:36 Pulse Ox 97 03/31/20 04:36 Weight - Most Recent: 89.358 kg Lab Results - Last 24 Hours: Laboratory Results - last 24 hr 03/31/20 Range/Units 05:08 Hgb 10.2 L (12.0-16.0) g/dL Hct 31.7 L (36.0-46.0) % Med Orders - Current: Current Medications Acetaminophen (Tylenol Extra Strength) 500 mg PO Q4H PRN PRN Reason: Pain Acetaminophen (Tylenol Extra Strength) 1,000 mg PO Q4H PRN PRN Reason: Pain Last Admin: 03/31/20 06:21 Dose: 1,000 mg Documented by: Benzocaine/Menthol (Dermoplast Pain Relief 20%-0.5% [place]) 78 gm TOP ASDIRECTED PRN PRN Reason: Perineal Comfort Measure Last Admin: 03/30/20 20:52 Dose: 1 canister Documented by: Bisacodyl (Dulcolax) 10 mg RECTAL ONETIME PRN PRN Reason: Constipation Docusate Sodium (Colace) 100 mg PO BID PRN PRN Reason: Constipation Last Admin: 03/31/20 09:06 Dose: 100 mg Documented by: Emollient Ointment (Lansinoh Hpa) 0 gm TOP ASDIRECTED PRN PRN Reason: Sore Nipples Last Admin: 03/30/20 20:51 Dose: 1 gm Documented by: Tranexamic Acid 1,000 mg/ (Sodium Chloride) 110 mls @ 660 mls/hr IV ONETIME PRN PRN Reason: Bleeding Ibuprofen (Motrin) 400 mg PO Q4H PRN PRN Reason: Pain Ibuprofen (Motrin) 800 mg PO Q6H PRN PRN Reason: Pain Last Admin: 03/31/20 06:21 Dose: 800 mg Documented by: Methylergonovine Maleate (Methergine) 0.2 mg IM ONETIME PRN PRN Reason: Excessive Vaginal Bleeding Witch Pratima (Tucks) 1 pad TOP ASDIRECTED PRN PRN Reason: comfort care Last Admin: 03/30/20 20:51 Dose: 1 pad Documented by: Discontinued Medications Butorphanol Tartrate (Stadol) 1 mg IVPUSH Q1H PRN PRN Reason: Pain Carboprost Tromethamine (Hemabate Ds) 250 mcg IM ASDIRECTED PRN PRN Reason: Post Hemorrhage Oxytocin/Sodium Chloride (Oxytocin 30 Unit/500 Ml-Ns) 30 unit in 500 mls @ 999 mls/hr IV TITRATE LATA Tranexamic Acid 1,000 mg/ (Sodium Chloride) 110 mls @ 660 mls/hr IV ONETIME PRN PRN Reason: Bleeding Lactated Ringer's (Ringers, Lactated) 1,000 mls @ 150 mls/hr IV ASDIRECTED LATA Lidocaine HCl (Xylocaine 1%) 50 ml INJECT ONETIME PRN PRN Reason: Laceration repair Methylergonovine Maleate (Methergine) 0.2 mg IM ASDIRECTED PRN PRN Reason: Post Hemorrhage Misoprostol (Cytotec) 200 mcg PO ONETIME PRN PRN Reason: Post Hemorrhage Nalbuphine HCl (Nubain) 10 mg IVPUSH Q1H PRN PRN Reason: Pain (severe 7-10) Ondansetron HCl (Zofran) 4 mg IVPUSH Q6H PRN PRN Reason: Nausea/Vomiting Sodium Chloride (Saline Flush) 10 ml FLUSH ASDIRECTED PRN PRN Reason: Keep Vein Open Sodium Chloride (Saline Flush) 2.5 ml FLUSH ASDIRECTED PRN PRN Reason: Keep Vein Open Sodium Chloride (Normal Saline) 10 ml IV ASDIRECTED PRN PRN Reason: IV Use Sterile Water (Sterile Water For Irrigation) 1,000 ml IRR ASDIRECTED PRN PRN Reason: delivery - Interaction Infant Disposition, : [place] in Room with Family Interaction: Holding Feeding: Breastfed Infant; Nursed Well Support Person: - Recovery Exam Fundal Tone: Firm Fundal Level: 2 Fingerbreadths Below Umbilicus Fundal Placement: Midline Lochia Amount: Scant Lochia Color: Rubra/Red Perineum Description: Other (see below) Other Perinuem Description: Skid little noted post-delivery Episiotomy/Laceration: None Bladder Status: Voiding Urinary Elimination: Voided - Exam General: Alert, No Acute Distress Lungs: Clear to Auscultation, Normal Respiratory Effort Cardiovascular: Regular Rate, Regular Rhythm GI/Abdominal Exam: Soft, Non-Tender Extremities: Normal Inspection Skin: Warm, Dry Neurological: Normal Gait, Normal Speech Psy/Mental Status: Normal Affect, Normal Mood Physical Findings Comment:: Examined left breast and nipple. There are no sores or redness at this time. - Problem List & Annotations (1) (normal spontaneous vaginal delivery) SNOMED Code(s): 69861556, 965781774 Code(s): O80 - ENCOUNTER FOR FULL-TERM UNCOMPLICATED DELIVERY Status: Acute Priority: High Current Visit: No - Problem List Review Problem List Initiated/Reviewed/Updated: Yes - Assessment Assessment:: 29 y/o female now PPD1 post spontaneous vaginal delivery at 40w/3d. - Plan Plan:: 1. Routine care -Rubella immune, GBS negative, B+ blood type 2. Continue 3. Continue pre- vitamins 4. Anticipate discharge to home today pending maternal and infant status 5. visit in [address] Jackman, or sooner if any concerns or problems arise
[2020-03-31 10:04] VITALS: BP 129/76; PULSE 76
== END 2020-03-31 14:55 | disposition home or self-care (01) | DRG 560 ==
LOC: MW.OB 23:10 → MW.OBCHECK 23:10 → MW.OB 03-30 00:36 → MW.OBCHECK 03-30 00:36 → OBSVTOIN 03-30 03:07 → MW.OB 03-30 05:57
PROVIDERS: ADMIT Obstetrics & Gynecology; ATTEND Obstetrics & Gynecology
PROC: 10E0XZZ Delivery of Products of Conception, External Approach (ICD-10-PCS; principal; 2020-03-30)
DX: O48.0 Post-term pregnancy (principal); Z3A.40 40 weeks gestation of pregnancy; Z37.0 Single live birth; Z20.828 Contact with and (suspected) exposure to other viral communicable diseases
CPT/HCPCS: 36415; 59025; 59409; 82803; 85014; 85018; 85027; 86592; 86850; 86900; 86901; A9270-GY; U0002